=== PATIENT | female | born 1955 | race Caucasian/White ===

== ENCOUNTER 2020-09-14 08:49 | Emergency (ER) | payer MEDICARE, BC ==
[2020-09-14] MEDS ORDERED: Sodium Chloride 0.9% 10 ML Syringe FLUSH PRN (09:02)
--- NOTE | 2020-09-14 09:15 | EDM.PDOC ---
ED HPI GENERAL MEDICAL PROBLEM - General Chief Complaint: Neuro Symptoms/Deficits Stated Complaint: LEFT SIDE WEAKNESS AND DROOLING Time Seen by Provider: 09/14/20 08:55 Source of Information: Reports: Patient History Limitations: Reports: No Limitations - History of Present Illness INITIAL COMMENTS - FREE TEXT/NARRATIVE: The patient presents with left arm weakness and left sided facial droop. The patient said her last time known well was Thursday night at 7:30pm when she went to bed. She woke up with some left sided facial droop and drooling. She did not have much weakness in her arm at that time. She did see her doctor and it was felt this was not a stroke. She then developed some weakness in her left arm. She is left handed and she cannot write with her left hand. She has no weakness in her legs. She has no trouble speaking. She has no fever, chills, cough, chest pain or shortness of breath. She has a slight headache. She has no abdominal pain nausea or vomiting. She has never had a stroke before. She was recently diagnosed with hypertension and hypercholesterolemia. She was put on medications for both. She does not smoke. She does not have diabetes. Onset: Gradual Duration: Day(s): (Woke up with this Thursday) Location: Reports: Head Quality: Reports: Ache Severity: Mild Improves with: Reports: None Worsens with: Reports: None Associated Symptoms: Reports: Headaches. Denies: Chest Pain, Cough, Fever/Chills, Nausea/Vomiting, Shortness of Breath - Related Data Allergies Allergy/AdvReac Type Severity Reaction Status Date / Time atorvastatin [From Lipitor] Allergy Severe Joint Pain Verified 09/14/20 09:15 celecoxib [From Celebrex] Allergy Severe Swelling Verified 09/14/20 09:15 rosuvastatin [From Crestor] Allergy Severe Joint Pain Verified 09/14/20 09:15 Home Meds: Home Meds Cyclobenzaprine [Flexeril] 1 - 2 tab PO TID PRN 09/14/20 [History] Esomeprazole [NexIUM] 40 mg PO DAILY 09/14/20 [History] Naproxen [Naprosyn] 500 mg PO BID 09/14/20 [History] lisinopriL [Lisinopril] 10 mg PO DAILY 09/14/20 [History] ED ROS GENERAL - Review of Systems Review Of Systems: See Below Constitutional: Reports: No Symptoms HEENT: Reports: No Symptoms Respiratory: Reports: No Symptoms Cardiovascular: Reports: No Symptoms Endocrine: Reports: No Symptoms GI/Abdominal: Reports: No Symptoms : Reports: No Symptoms Skin: Reports: No Symptoms Neurological: Reports: Weakness (left facial drooping and left arm weakness) ED EXAM, NEURO - Physical Exam Exam: See Below Exam Limited By: No Limitations General Appearance: Alert, No Apparent Distress Ears: Normal External Exam Nose: Normal Inspection Head Exam: Atraumatic, Normocephalic Neck: Normal Inspection Respiratory/Chest: No Respiratory Distress, Lungs Clear, Normal Breath Sounds Cardiovascular: Regular Rate, Rhythm, No Edema, No Murmur GI/Abdominal: Soft, Non-Tender, No Organomegaly, No Mass Neurological: Alert, Oriented x 3, Other (Left sided facial droop. Mild to moderate left arm weakness with hand weakness and pronator drift.) Extremities: Normal Inspection #1 Interpretation EKG Date: 09/14/20 Time: 09:13 Rhythm: NSR Rate (Beats/Min): [address] [place]: Normal P-Wave: Present QRS: Normal ST-T: Normal QT: Normal EKG Interpretation Comments: Q waves in the anterior leads Course - Vital Signs Last Recorded V/S: Last Vital Signs Temp 97.0 F 09/14/20 08:55 Pulse 97 09/14/20 08:55 Resp 17 09/14/20 08:55 BP 131/114 H 09/14/20 08:55 Pulse Ox 98 09/14/20 08:55 - Orders/Labs/Meds Orders: Active Orders 24 hr Category Date Time Status Cardiac Monitoring [RC] . DIRECTED Care 09/14/20 09:02 Active EKG Documentation Completion [RC] STAT Care 09/14/20 09:02 Active Peripheral IV Care [RC] . DIRECTED Care 09/14/20 09:02 Active CORONAVIRUS COVID-19 JUDITH [MOLEC] Stat Lab 09/14/20 11:00 Received Sodium Chloride 0.9% [Saline Flush] Med 09/14/20 09:02 Active 10 ml FLUSH ASDIRECTED PRN Peripheral IV Insertion Adult [OM.PC] Stat Oth 09/14/20 09:02 Ordered Medication Orders Sodium Chloride (Sodium Chloride 0.9% 10 Ml Syringe) 10 ml FLUSH ASDIRECTED PRN PRN Reason: Keep Vein Open Last Admin: 09/14/20 09:30 Dose: 10 ml Documented by: GERALDO Labs: Laboratory Tests 09/14/20 09/14/20 09/14/20 Range/Units 09:02 09:12 09:12 WBC 6.36 (3.98-10.04) K/mm3 RBC 4.44 (3.98-5.22) M/mm3 Hgb 12.8 (11.2-15.7) gm/dl Hct 39.7 (34.1-44.9) % MCV 89.4 (79.4-94.8) fl MCH 28.8 (25.6-32.2) pg MCHC 32.2 (32.2-35.5) g/dl RDW Std Deviation 44.6 (36.4-46.3) fL Plt Count 272 (182-369) K/mm3 MPV 8.0 L (9.4-12.3) fl Neut % (Auto) 59.3 (34.0-71.1) % Lymph % (Auto) 30.0 (19.3-51.7) % [place] % (Auto) 6.9 (4.7-12.5) % Eos % (Auto) 3.0 (0.7-5.8) Baso % (Auto) 0.5 (0.1-1.2) % Neut # (Auto) 3.77 (1.56-6.13) K/mm3 Lymph # (Auto) 1.91 (1.18-3.74) K/mm3 [place] # (Auto) 0.44 H (0.24-0.36) K/mm3 Eos # (Auto) 0.19 (0.04-0.36) K/mm3 Baso # (Auto) 0.03 (0.01-0.08) K/mm3 PT 10.8 (9.7-12.0) SECONDS INR 1.01 APTT 29.6 (21.7-31.4) SECONDS Sodium (136-145) mEq/L Potassium (3.5-5.1) mEq/L Chloride (98-107) mEq/L Carbon Dioxide (21-32) mEq/L Anion Gap (5-15) BUN (7-18) mg/dL Creatinine (0.55-1.02) mg/dL Est Cr Clr Drug Dosing mL/min Estimated GFR (MDRD) (>60) mL/min BUN/Creatinine Ratio (14-18) Glucose (80-115) mg/dL POC Glucose 90 (80-115) mg/dL Calcium (8.5-10.1) mg/dL Total Bilirubin (0.2-1.0) mg/dL AST (15-37) U/L ALT (14-59) U/L Alkaline Phosphatase (46-116) U/L Troponin I (0.00-0.056) ng/mL Total Protein (6.4-8.2) g/dl Albumin (3.4-5.0) g/dl Globulin gm/dL Albumin/Globulin Ratio (1-2) 09/14/20 Range/Units 09:12 WBC (3.98-10.04) K/mm3 RBC (3.98-5.22) M/mm3 Hgb (11.2-15.7) gm/dl Hct (34.1-44.9) % MCV (79.4-94.8) fl MCH (25.6-32.2) pg MCHC (32.2-35.5) g/dl RDW Std Deviation (36.4-46.3) fL Plt Count (182-369) K/mm3 MPV (9.4-12.3) fl Neut % (Auto) (34.0-71.1) % Lymph % (Auto) (19.3-51.7) % [place] % (Auto) (4.7-12.5) % Eos % (Auto) (0.7-5.8) Baso % (Auto) (0.1-1.2) % Neut # (Auto) (1.56-6.13) K/mm3 Lymph # (Auto) (1.18-3.74) K/mm3 [place] # (Auto) (0.24-0.36) K/mm3 Eos # (Auto) (0.04-0.36) K/mm3 Baso # (Auto) (0.01-0.08) K/mm3 PT (9.7-12.0) SECONDS INR APTT (21.7-31.4) SECONDS Sodium 144 (136-145) mEq/L Potassium 3.9 (3.5-5.1) mEq/L Chloride 106 (98-107) mEq/L Carbon Dioxide 26 (21-32) mEq/L Anion Gap 15.9 H (5-15) BUN 19 H (7-18) mg/dL Creatinine 0.8 (0.55-1.02) mg/dL Est Cr Clr Drug Dosing 56.45 mL/min Estimated GFR (MDRD) > 60 (>60) mL/min BUN/Creatinine Ratio 23.8 H (14-18) Glucose 92 (80-115) mg/dL POC Glucose (80-115) mg/dL Calcium 8.8 (8.5-10.1) mg/dL Total Bilirubin 0.5 (0.2-1.0) mg/dL AST 20 (15-37) U/L ALT 32 (14-59) U/L Alkaline Phosphatase 68 (46-116) U/L Troponin I < 0.017 (0.00-0.056) ng/mL Total Protein 7.2 (6.4-8.2) g/dl Albumin 4.0 (3.4-5.0) g/dl Globulin 3.2 gm/dL Albumin/Globulin Ratio 1.3 (1-2) Meds: Medications Generic Name Dose Route Start Last Admin Trade Name Freq PRN Reason Stop Dose Admin Sodium Chloride 10 ml 09/14/20 09:02 09/14/20 09:30 Sodium Chloride 0.9% 10 Ml Syringe FLUSH 10 ml ASDIRECTED PRN Administration Keep Vein Open - Re-Assessments/Exams Free Text/Narrative Re-Assessment/Exam: 09/14/20 09:19 A stroke alert was called. I went into the room right away. Her last time known well was Thursday at 7:30pm. She has left sided facial droop and left arm weakness. I ordered a CT of her head and labs. 09/14/20 09:[address] of her head shows slight diminished density suggested to the posterior right frontal region and difficult to exclude early infarct. MRI would be helpful to confirm this finding. Incidental vascular calcification with no evidence of intracranial hemorrhage. I have ordered an MRI of her brain. She is way out of the range for giving thrombolytics. Her last time known well was Thursday at 7:30pm. That is 4 days ago. Her glucose was 90 and CBC looks good. 09/14/20 11:24 The MRI of her brain shows recent areas of infarct within the right parietal region as well as extending into the posterior corpus callosum and periventricular white matter. Additional area of abnormal diffusion seen within the right frontal white matter. These areas show abnormal diffusion as well as increased signal on the FLAIR sequence. Minimal senescent change. No other acute abnormality is seen. Her NIH score is 2. I called [facility] in [place] and talked with Dr Smith the neurologist unit receptionist and he wanted the patient down there and they will do further work up. He did not want aspirin at this time. We both agree the patient is not a candidate for thrombolytics. I also talked with the hospitalist Dr Man. 09/14/20 11:34 Her daughter Mariluz is the emergency contact. Her number is . Departure - Departure Time of Disposition: 11:35 Disposition: DC/Tfer to Acute Hospital 02 Condition: Poor Clinical Impression: Cerebrovascular accident (CVA) Qualifiers: CVA mechanism: unspecified Qualified Code(s): I63.9 - Cerebral infarction, unspecified - Discharge Information Referrals: Az Garcia MD [Primary Care Provider] - Forms: ED Department Discharge Sepsis Event Note (ED) - Focused Exam Vital Signs: Vital Signs Temp Pulse Resp BP Pulse Ox 09/14/20 08:55 97.0 F 97 17 131/114 H 98 - My Orders Last 24 Hours: My Active Orders 09/14/20 09:02 Cardiac Monitoring [RC] . DIRECTED EKG Documentation Completion [RC] STAT Peripheral IV Care [RC] . DIRECTED Sodium Chloride 0.9% [Saline Flush] 10 ml FLUSH ASDIRECTED PRN Peripheral IV Insertion Adult [OM.PC] Stat 09/14/20 11:00 CORONAVIRUS COVID-19 JUDITH [MOLEC] Stat - Assessment/Plan Last 24 Hours: My Active Orders 09/14/20 09:02 Cardiac Monitoring [RC] . DIRECTED EKG Documentation Completion [RC] STAT Peripheral IV Care [RC] . DIRECTED Sodium Chloride 0.9% [Saline Flush] 10 ml FLUSH ASDIRECTED PRN Peripheral IV Insertion Adult [OM.PC] Stat 09/14/20 11:00 CORONAVIRUS COVID-19 JUDITH [MOLEC] Stat
--- NOTE | 2020-09-14 09:23 | CT ---
Head CT Technique: Multiple axial sections through the brain were obtained. Intravenous contrast was not utilized. Reconstructed coronal and sagittal images were obtained. Findings: Ventricles along with basal cisterns and sulci over the convexities appear within normal limits for the patient's age. Slight diminished density is suggested within the right posterior frontal region. Difficult to exclude early infarct. No other abnormal parenchymal densities are seen. No evidence of intracranial hemorrhage. No midline shift or mass-effect is seen. Bone window settings were reviewed which show vascular calcification within the carotid siphon and vertebral vessels. Visualized paranasal sinuses and mastoid sinuses show nothing acute. No acute calvarial finding is appreciated. Impression: 1. Slight diminished density suggested to the posterior right frontal region and difficult to exclude early infarct. MRI would be helpful to confirm this finding. 2. Incidental vascular calcification with no evidence of intracranial hemorrhage. Diagnostic code #5
--- NOTE | 2020-09-14 10:50 | MR ---
MRI brain Technique: T1 sagittal; T2, T2 FLAIR, T1 and diffusion axial; T1 FLAIR coronal images were obtained. Comparison: Previous head CT exam performed earlier on the same day (9:04 AM). Findings: Abnormal diffusion is seen within the inferior right corpus callosum and extending superiorly into the periventricular white matter. Additional areas of abnormal diffusion are seen within the right parietal region. There is an area of additional abnormal diffusion within the right frontal white matter which also shows increased signal on the FLAIR sequence and was noted on the CT exam. These areas show increased signal on the FLAIR sequence. Findings are compatible with relatively recent infarcts. Minimal areas of increased signal are otherwise seen within the white matter compatible with minimal small vessel ischemic demyelination change. Visualized paranasal sinuses and mastoid sinuses show nothing acute. Impression: 1. Recent areas of infarct within the right parietal region as well as extending into the posterior corpus callosum and periventricular white matter. Additional area of abnormal diffusion seen within the right frontal white matter. These areas show abnormal diffusion as well as increased signal on the FLAIR sequence. 2. Minimal senescent change. 3. No other acute abnormality is seen. Diagnostic code #5
== END 2020-09-14 12:22 ==
LOC: JD.ED 08:49
DX: I63.9 Cerebral infarction, unspecified (principal); Z88.8 Allergy status to other drugs, medicaments and biological substances; Z79.899 Other long term (current) drug therapy; Z20.822 Contact with and (suspected) exposure to COVID-19
CPT/HCPCS: 36415; 70450; 70551; 80053; 82962; 84484; 85025; 85610; 85730; 93005; 99285; U0002; 93010; 99284

== ENCOUNTER 2020-12-22 09:14 | Emergency (ER) | payer MEDICARE, BC | END 2020-12-22 09:45 | disposition left against medical advice (07) | LOC: JD.ED 09:14 | DX: K94.03 Colostomy malfunction (principal); Z53.21 Procedure and treatment not carried out due to patient leaving prior to being seen by health care provider ==

== ENCOUNTER 2023-05-13 09:52 | Day surgery (SDC) | payer MEDICARE, BC ==
[~2023-05-13 09:52] MED LIST: Lactated Ringers 1,000 ML IV SCH; Sodium Chloride 0.9% 10 ML Syringe FLUSH PRN; Sodium Chloride 0.9% 10 ML Syringe FLUSH SCH
[2023-05-13] MEDS ORDERED: Lidocaine 1% 4 ML ONE (11:21)
[2023-05-13] MEDS ORDERED: Midazolam 1 MG/ML 2 ML SDV ONE (11:21)
[2023-05-13] MEDS ORDERED: Propofol 200 MG/20 ML SDV ONE (11:21)
[2023-05-13] MEDS ORDERED: Phenylephrine 1% 10 MG/ML SDV ONE ×2 (12:08→12:09)
== END 2023-05-13 14:10 | disposition home or self-care (01) ==
LOC: JD.SDS 09:52
PROVIDERS: ATTEND Surgery
DX: K92.1 Melena (principal); K22.2 Esophageal obstruction; K44.9 Diaphragmatic hernia without obstruction or gangrene; K64.8 Other hemorrhoids; K29.50 Unspecified chronic gastritis without bleeding; G47.33 Obstructive sleep apnea (adult) (pediatric); E78.00 Pure hypercholesterolemia, unspecified; I10 Essential (primary) hypertension; R10.30 Lower abdominal pain, unspecified; K21.9 Gastro-esophageal reflux disease without esophagitis; M06.9 Rheumatoid arthritis, unspecified; E66.9 Obesity, unspecified; Z68.33 Body mass index [BMI] 33.0-33.9, adult; Z86.010 Personal history of colon polyps; Z87.891 Personal history of nicotine dependence; Z98.890 Other specified postprocedural states; Z79.899 Other long term (current) drug therapy; Z88.8 Allergy status to other drugs, medicaments and biological substances
CPT/HCPCS: 43239; 45378; 93005; J2250; J2371; J2704; J7120; 00813; J3490